=== PATIENT | female | born 1960 | race Asian ===

== ENCOUNTER 2018-06-03 08:19 | Day surgery (SDC) | payer BC, MEDICAID ==
[2018-06-03] MEDS ORDERED: LIDOCAINE 2% (SDV) 5 ML INJ (08:57)
[2018-06-03] MEDS ORDERED: PROPOFOL 20 ML (08:57)
[2018-06-03] MEDS ORDERED: EPHEDrine 50 MG INJ (09:09)
[2018-06-03] MEDS ORDERED: hydrALAzine 20 MG INJ (09:16)
[2018-06-03] MEDS ORDERED: GLYCOPYRROLATE 0.4 MG INJ (09:16)
== END 2018-06-03 11:17 | disposition home or self-care (01) ==
LOC: GIL 08:19
DX: Z12.11 Encounter for screening for malignant neoplasm of colon (principal); K57.90 Diverticulosis of intestine, part unspecified, without perforation or abscess without bleeding; K64.8 Other hemorrhoids
CPT/HCPCS: 45378